=== PATIENT | male | born 1975 | race Caucasian/White ===

== ENCOUNTER 2021-10-01 11:39 | Emergency (ER) | payer SELFPAY ==
[~2021-10-01] VITALS: Ht 172.7 cm; Wt 74.4 kg
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
--- NOTE | 2021-10-01 12:06 | NUR ---
URIAS AT THE BEDSIDE
[2021-10-01] MEDS ORDERED: ACETAMINOPHEN 325 MG TABLET PO ONE (12:30)
[2021-10-01] MEDS ORDERED: ACETAMINOPHEN 325 MG TABLET ONE (12:33)
--- NOTE | 2021-10-01 12:43 | NUR ---
VOCATIONAL SERVICES SPECIALIST AT THE BEDSIDE
[2021-10-01] MEDS ORDERED: CYCL5TAB PO (14:16)
[2021-10-01] MEDS ORDERED: IBUP-1955 PO (14:16)
--- NOTE | 2021-10-01 14:23 | NUR ---
Patient discharged to home in stable condition. Written and verbal after care instructions given. Patient verbalizes understanding of instruction.
[2021-10-01 14:24] VITALS: BP 132/78
== END 2021-10-01 14:24 | disposition home or self-care (01) ==
LOC: ER 11:44
DX: S16.1XXA Strain of muscle, fascia and tendon at neck level, initial encounter (principal); S60.812A Abrasion of left wrist, initial encounter; S09.90XA Unspecified injury of head, initial encounter; M25.511 Pain in right shoulder; M25.532 Pain in left wrist; V49.49XA Driver injured in collision with other motor vehicles in traffic accident, initial encounter; Y93.89 Activity, other specified; Y92.413 State road as the place of occurrence of the external cause; Y99.8 Other external cause status
CPT/HCPCS: 70450-TC; 71045-TC; 72125-TC; 73030-TC; 73110